=== PATIENT | female | born 1945 | race Caucasian/White ===

== ENCOUNTER 2017-12-02 05:45 | Inpatient (IN) ==
[~2017-12-02 05:45] MED LIST: ENOXAPARIN 40 MG/0.4 ML INJECTION SQ ONE
[2017-12-02 06:02] VITALS: BMI 31.9
[2017-12-02] MEDS: LR 1,000 ML IV SCH ×2 (06:40→09:05)
[2017-12-02] MEDS ORDERED: INDOCYANINE GREEN 25mg INJECTION ONE (06:56)
[2017-12-02] MEDS ORDERED: .WATER FOR INJECTION,STERILE 10 ML VIAL ONE (06:56)
[2017-12-02] MEDS ORDERED: ROCURONIUM 50 MG/5 ML INJECTION IVP ONE (07:30)
[2017-12-02] MEDS ORDERED: SUCCINYLCHOLINE 20mg/mL 10mL INJECTION ONE (07:30)
[2017-12-02] MEDS ORDERED: FentaNYL 250 MCG/5 ML INJECTION ONE (07:31)
[2017-12-02] MEDS ORDERED: PROPOFOL 500 MG/50 ML VIAL ONE (07:31)
[2017-12-02] MEDS ORDERED: DEXAMETHASONE 4 MG/ML INJECTION ONE (07:35)
--- NOTE | 2017-12-02 07:41 | Anesthesia Preoperative Report ---
Anesthesia Preoperative Record - Date and Time Date: 12/02/17 Preoperative Diagnosis: Rt Hemicolectomy C18.2 Proposed Procedure: Rt Hemicolectomy C18.2 NPO Since Date: 12/02/17 NPO Since Time: 00:00 Allergies/Adverse Reactions: Allergies Allergy/AdvReac Type Severity Reaction Status Date / Time Peanuts Allergy Severe itching Verified 12/02/17 06:20 throat NKDA Allergy Uncoded 12/02/17 06:20 - Vital Signs Vital Signs: Temperature 98.3 F 12/02/17 06:01 Pulse Rate 82 12/02/17 06:01 Respiratory Rate 12 12/02/17 06:01 Blood Pressure 184/84 H 12/02/17 06:01 Pulse Oximetry 94 12/02/17 06:01 Height and Weight: Height 1.73 m Weight 95.4 kg Body Mass Index 31.9 - Medications Inpatient Medications: Current Medications Lactated Ringer's (Lactated Ringers) 1,000 mls @ 50 mls/hr IV .Q20H CLOVIS Last Admin: 12/02/17 06:40 Dose: 50 mls/hr Ertapenem 1 g/ Sodium Chloride 100 mls @ 200 mls/hr IV PREOP ONE Stop: 12/02/17 14:13 Lidocaine HCl (Xylocaine-Mpf 1% Vial) 1 mg ID O ONE Stop: 12/02/17 13:44 Last Admin: 12/02/17 06:40 Dose: 1 mg Home Medications: Home Medications Medication Instructions Recorded Confirmed Type Celexa (citalopram) 40 mg tablet 0.5 tab PO DAILY 11/08/17 12/02/17 History Toprol XL (metoprolol succinate 50 mg PO DAILY 11/08/17 12/02/17 History ER) 50 mg tablet, 24 hr Zestril (lisinopril) 40 mg tablet 40 mg PO DAILY 11/08/17 12/02/17 History Zocor (simvastatin) 40 mg tablet 40 mg PO DAILY 11/08/17 12/02/17 History Protonix (Pantoprazole)40 mg 40 mg PO DAILY #30 tab 11/18/17 12/02/17 Rx tablet,delayed release Is Patient on Beta Linsey?: Yes Beta Linsey Last Dose Date/Time: 12/02/2017 - Medical History Respiratory: DENIES: Asthma, Bronchitis, Chronic Obstructive Pulmonary Disease (COPD), Dyspnea, Orthopnea, Pulmonary Embolism, Pneumonia, Upper Respiratory Infection, Pulmonary Edema, Sleep Apnea, Tuberculosis, Other Cardiovascular: Reports: Hypertension, High Cholesterol Gastrointestional: Reports: Gastroesophageal Reflux Disease (controlled with med ), Other (colon cancer) Neuro/Musculoskeletal: Reports: 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), Depression Other History: Reports: Anesthesia Reactions (NAUSEA), Blood Transfusions (no reaction), Cancer (BCC FACE, COLON), Other (exc fatty tumor on buttocks) - Surgical History GI Surgery/Treatments: Reports: Appendectomy, Colonoscopy, EGD Reproductive Surgery/Treatment: Reports: Dilation and Curettage, Hysterectomy, Hysteroscopy, Oophorectomy Anesthesia Reactions: None, Nausea and Vomiting Hx Family Anesthesia Reaction: No History of Motion Sickness: No - Social History Smoking Status: Never smoker Second Hand Exposure: No Substance Use Type: does not use Alcohol Intake Frequency: does not drink - Pertinent Findings Laboratory: CBC and BMP 12/02/17 06:07 EKG: Sinus Rhythm - Physical Exam Respiratory Exam: Present: lungs clear, bilateral breath sounds equal Cardiovascular Exam: Present: regular rate and rhythm - Airway Assessment Mallampati Score: II TMD: 3 Fingerbreadths Neck Extension: good Overall Assessment: no airway concerns - ASA ASA Score: 3 - Plan Anesthesia: General Inhalation Gases - Discussion Discussion: Discussed risks/options/alternatives of anesthesia and questions answered. Patient consents. Nursing pain assessment noted. Attestation Statement: Prior to the delivery of any anesthetic medication, I examined the patient, developed the plan, obtained the patient's consent and discussed the risk and benefits of the procedure with the patient/guardian. - Additional Information Seen by Anesthesia: Yes
[2017-12-02] MEDS ORDERED: ATROPINE 0.4 MG/ML INJECTION ONE (08:18)
[2017-12-02] MEDS ORDERED: MORPHINE SULFATE 10 MG/ML VIAL ONE (09:43)
[2017-12-02] MEDS ORDERED: METOCLOPRAMIDE 10mg/2ml INJECTION IVP PRN (09:52)
[2017-12-02] MEDS ORDERED: MORPHINE SULFATE 10 MG/ML VIAL IVP PRN (09:52)
--- NOTE | 2017-12-02 10:15 | General Surgery Procedure Note ---
Date of Procedure: 12/02/17 Surgeon: Desmond Postoperative Diagnosis: Colon adenocarcinoma Procedure: Right hemicolectomy Estimated Blood Loss: See Anesthesia Record.
[2017-12-02] MEDS: MORPHINE SULFATE 10 MG/ML VIAL IVP PRN ×2 (10:41→10:59)
[2017-12-02] MEDS ORDERED: PROMETHAZINE 25 MG INJECTION IVP PRN (11:31)
[2017-12-02] MEDS ORDERED: ONDANSETRON 4 MG/2 ML INJECTION IVP PRN (11:31)
[2017-12-02] MEDS: D5-1/2NS with KCL 20mEq 1,000 ML IV SCH ×2 (11:37→21:55)
[2017-12-02] MEDS: FAMOTIDINE PB 20 MG/50 ML BAG IV SCH ×2 (12:51→21:55)
[2017-12-02] MEDS ORDERED: LIDOCAINE 1% (10mg/ml) 2mL INJ PF SDV ID ONE (13:43)
[2017-12-02] MEDS ORDERED: ERTAPENEM 1 G in NS 100 ML IV ONE (13:44)
[2017-12-02] MEDS ORDERED: INFLUENZA VAC. INJ. ADMIN CHARGE INJ ONE (14:00)
[2017-12-02] MEDS ORDERED: INFLUENZA VAC High Dose 2017-18 (Fluzone HD*) (>=65yo) 0.5ml IM ONE (15:00)
--- NOTE | 2017-12-02 15:40 | Operative Note ---
DATE OF OPERATION 12/02/2017 PREOPERATIVE DIAGNOSES 1. Invasive colonic adenocarcinoma at mid ascending colon. 2. Colon polyp located just distal to the invasive colonic adenocarcinoma. POSTOPERATIVE DIAGNOSES 1. Invasive adenocarcinoma at mid ascending colon. 2. Colon polyp located just distal to the invasive adenocarcinoma. 3. Intraabdominal adhesions. 4. Nodule at surface of liver. 5. Hepatic cyst. OPERATION Laparotomy, lysis of intraabdominal adhesions, open right hemicolectomy and excision of nodule at surface of liver. SURGEON Bart Logan MD SENSITOMETRIST Mj Quinonez MD ANESTHESIA General ASA CLASS 3 FINDINGS This patient did have a mass at the mid ascending colon. There was no gross evidence of extension of the mass through the wall of the colon into any surrounding structures. Some of the lymph nodes in the ascending colon mesentery appeared to be enlarged. The patient did have some intraabdominal adhesions. There were some adhesions from the surface of the liver to the anterior abdominal wall parietal peritoneum. There were some adhesions around the gallbladder and hepatic flexure of the colon area. The patient did have her uterus and ovaries and fallopian tubes removed at previous operations. There were some adhesions involving the small intestine associated with these previous operations. The patient did have an old midline vertically oriented lower abdominal incision scar from a laparotomy with salpingo-oophorectomy operation. The patient also had old robotic laparoscopic hysterectomy incision scars. The patient did have one cyst at the liver. This was at the margin of the liver at the lateral segment of the left lobe of the liver. This was a typical benign-appearing hepatic cyst. The patient did have a small white nodule of tissue at the anterior surface of the lateral segment of the left lobe of the liver. This was located just superior to where the hepatic cyst was located. This small white nodule of tissue at the surface of the liver was excised at the time of the operation today. There were no other similar nodules anywhere else. There were no visceral or peritoneal tumor implants anywhere throughout the peritoneal cavity. The only area that was thought to be suspicious for metastatic disease was the small white nodule at the anterior surface of the left lobe of the liver. The gallbladder did not appear to contain any gallstones. DESCRIPTION OF OPERATION The patient was placed in supine position on the operating table. General anesthesia was satisfactorily induced. The abdomen was prepped and draped in routine sterile fashion. A midline vertically oriented abdominal incision was made and extended through the abdominal wall. The peritoneal cavity was entered. The Desmond wound protector was placed at the incision at this time. The Codman retractor was assembled at this time and used to provide exposure. The abdomen was explored with findings as described above. Intraabdominal adhesions at the right upper quadrant of the peritoneal cavity were divided at this time. The greater omentum was from the right half of the transverse colon. The hepatic flexure of the colon was mobilized. Some adhesions between the hepatic flexure of the colon and the gallbladder were divided. The peritoneum along the right lateral gutter was incised. The ascending colon was mobilized medially. The duodenum was carefully identified and preserved from injury at this time. The mesentery of the transverse colon was carefully examined. The position of the middle colic blood vessels was identified. A distal resection margin was selected at the transverse colon just to the right side of the middle colic blood vessels so that there would be a good blood supply up to the end of the transverse colon which was left in the patient to be used for the anastomosis. The transverse colon was divided at the distal resection margin with the Eth[employer] brand TLC 75 linear cutter stapler. This did allow a good blood supply within the remaining transverse colon mesentery leading up to the remaining transverse colon. A proximal resection margin was selected at the terminal ileum. Some of the adhesions around the terminal ileum were divided at this time to mobilize up the terminal ileum. The terminal ileum was divided at the proximal resection margin with the Ethicon brand TLC 75 linear cutter stapler. Mesentery beneath the segment of the terminal ileum to be resected was divided. This was done by doubly clamping the mesentery with right angle clamps, dividing the mesentery between clamps and ligating the pedicles of mesentery with 0 Vicryl ligatures. The ileocolic artery and vein were divided at the level of the root of the mesentery. The ileocolic artery and vein were from one another and the artery was doubly clamped with right angle clamps and the vein was separately doubly clamped with right angle clamps. The artery and vein were divided between the clamps. The ileocolic artery was ligated with 0 Vicryl ligatures. The ileocolic vein was ligated with 0 Vicryl ligatures. The mesentery beneath the ascending colon and the hepatic flexure of the colon and the proximal transverse colon was divided at the level of the root of the mesentery. This was done by doubly clamping the mesentery between right angle clamps, dividing the mesentery between right angle clamps and ligating the pedicles of the mesentery with 0 Vicryl ligatures. The specimen of terminal ileum, cecum, ascending colon and proximal transverse colon along with the underlying mesentery was then handed off as a specimen for study by the pathologist. Irrigation was performed at the peritoneal cavity. Hemostasis appeared to be satisfactory everywhere. The stapled closed end of ileum was brought up into a position adjacent to the stapled closed end of transverse colon. A functional end-to-end anastomosis was then created between the stapled closed end of the ileum and stapled closed end of the transverse colon using the [employer] TLC 75 linear cutter stapler and the EthiEpocrates TX 60 -B stapler. The internal staple lines were inspected as this was done and they looked good. The external staple lines were inspected and they looked good. There did appear to be a good blood supply to the anastomosis. There was no tension on the anastomosis. The anastomosis did appear to have a satisfactory size. Two stitches of 3-0 Vicryl suture were placed at the crotch of the anastomosis. These were 3-0 Vicryl simple interrupted seromuscular stitches. The opening in the mesentery beneath the anastomosis was then closed with a continuous simple [id number] stitch using 3-0 Vicryl suture. Hemostasis remained satisfactory throughout the peritoneal cavity. The greater omentum was brought down over the anastomosis and beneath the incision. Attention was directed to the small white nodule at the surface of the lateral segment of the left lobe of the liver. This nodule was excised with the monopolar electrosurgery device and submitted as a specimen for study by the pathologist. The site where the nodule was removed from the surface of the liver was coagulated with the monopolar electrosurgery device to achieve hemostasis. Satisfactory hemostasis was present at this area. The Codman retractor was removed. The Desmond wound protector was removed. The surgeon, first coat operator and scrub nurse all changed gowns and gloves at this time. New sterile drapes were placed at the incision. New light handles were used. A reserved clean instrument tray was then used for closing the wound. The abdominal incision was closed. The fascial layer of the incision was closed and the linea alba was reapproximated with a continuous simple [id number] stitch using #1 PDS suture. The skin margins at the incision were reapproximated with skin eric. Sterile dressings were applied. Sponge, needle and instrument counts were all correct. The patient did appear to tolerate the operation well. The patient was transferred from the operating room to the recovery room in satisfactory condition. LEISA
[2017-12-02] MEDS: KETOROLAC 15 MG/ML INJECTION IVP PRN (16:44)
[2017-12-02] MEDS: MORPHINE SULFATE 10 MG SYRINGE IV PRN (17:51)
[2017-12-03] MEDS: KETOROLAC 15 MG/ML INJECTION IVP PRN ×3 (00:37→15:59)
[2017-12-03] MEDS: MORPHINE SULFATE 10 MG SYRINGE IV PRN ×2 (06:18→13:30)
[2017-12-03] MEDS: D5-1/2NS with KCL 20mEq 1,000 ML IV SCH ×2 (08:27→19:46)
[2017-12-03] MEDS: FAMOTIDINE PB 20 MG/50 ML BAG IV SCH ×2 (08:28→21:19)
[2017-12-03] MEDS: ENOXAPARIN 40 MG/0.4 ML INJECTION SQ SCH (08:28)
--- NOTE | 2017-12-03 10:57 | Progress Note ---
DATE 12/03/2017 POSTOP DAY #1 HISTORY OF PRESENT ILLNESS The patient is doing well. She has been stable since her operation. She has good pain control. She has not been out of bed yet. PHYSICAL EXAMINATION VITAL SIGNS: Temperature is 98.3 degrees Fahrenheit oral. Pulse is 79. Respiratory rate is 16. Blood pressure is 146/64. Oxygen saturation is 95% on oxygen at 1 liter per minute by nasal cannula. ABDOMEN: The abdominal incision looks good. The abdomen is nondistended. INTAKE AND OUTPUT The patient has had a good urine output since the operation.. LABORATORY DATA Hemoglobin was 9.3 and hematocrit was 31.6 preoperatively at 0607 hours on 12/02. Hemoglobin was 8.2 and hematocrit was 28.8 this morning. White blood cell count is 6900. Serum sodium was 142. Serum potassium is 4.4. Serum creatinine is 0.7. IMPRESSION 1. Doing well following laparotomy, lysis of intraabdominal adhesions, open right hemicolectomy and excision of nodule at surface of the liver on 2017. 2. Anemia due to chronic gastrointestinal tract blood loss from invasive adenocarcinoma at the mid ascending colon. PLAN 1. Get patient out of bed and up in chair and ambulate her more today. 2. Discontinue Mc catheter. 3. Continue Lovenox and sequential compression devices for deep venous thrombosis prophylaxis. 4. Continue intravenous Pepcid for GI prophylaxis. MTDD
[2017-12-04] MEDS: D5-1/2NS with KCL 20mEq 1,000 ML IV SCH ×2 (06:43→10:46)
[2017-12-04] MEDS: ENOXAPARIN 40 MG/0.4 ML INJECTION SQ SCH (08:26)
[2017-12-04] MEDS: FAMOTIDINE PB 20 MG/50 ML BAG IV SCH ×3 (08:30→20:10)
[2017-12-04] MEDS: LISINOPRIL 40 MG TABLET PO SCH (10:51)
[2017-12-04] MEDS: SIMVASTATIN 40 MG TABLET PO SCH (10:51)
[2017-12-04] MEDS ORDERED: SIMVASTATIN 40 MG TABLET PO SCH (21:00)
[2017-12-05] MEDS: D5-1/2NS with KCL 20mEq 1,000 ML IV SCH ×2 (00:45→05:57)
[2017-12-05] MEDS: LISINOPRIL 40 MG TABLET PO SCH ×2 (06:38→11:09)
--- NOTE | 2017-12-05 07:38 | Progress Note ---
DATE 12/04/2017 POSTOP DAY #2 HISTORY OF PRESENT ILLNESS The patient is doing well overall. She has good pain control. She has been up ambulating. She has not started to pass any flatus yet. The patient has been urinating frequently. We did just check the residual amount of urine in the bladder with a bladder scanner. The patient had 300 ml residual urine in the bladder by bladder scanner immediately after voiding 200 ml. This indicates that the urinary frequency is due to some postoperative urinary retention. The patient has been noted to have some hypertension this morning. She normally takes antihypertensive medication at home. PHYSICAL EXAMINATION VITAL SIGNS: Temperature is 97 degrees Fahrenheit oral. Pulse is 77. Respiratory rate is 16. The patient did have a blood pressure of 190/90 at 0320 hours. The patient had a blood pressure of 188/85 at 0708 hours. Oxygen saturation is 99% on room air. ABDOMEN: The abdominal incision looks good. The abdomen is nondistended. IMPRESSION 1. Doing well following laparotomy, lysis of intraabdominal adhesions, open right hemicolectomy and excision of nodule at surface of liver on 12/02/2017. 2. Anemia due to chronic gastrointestinal tract blood loss from invasive adenocarcinoma at the mid ascending colon. 3. Postoperative urinary retention. 4. Hypertension. PLAN 1. Straight catheterization of the patient p.r.n. when she has large residual urine amounts by bladder scanning after voiding to see if this will help her regain bladder tone. If this does not work, the patient may need to have a Mc catheter reinserted. 2. Resume antihypertensive medication which the patient was taking preoperatively at this time to treat the hypertension. 3. Continue ambulation of the patient. 4. Continue Lovenox and sequential compression devices for deep venous thrombosis prophylaxis. 5. Continue intravenous Pepcid for GI prophylaxis. MTDD
[2017-12-05] MEDS: FAMOTIDINE PB 20 MG/50 ML BAG IV SCH (11:09)
[2017-12-05] MEDS: ENOXAPARIN 40 MG/0.4 ML INJECTION SQ SCH (11:14)
[2017-12-05] MEDS: SIMVASTATIN 40 MG TABLET PO SCH (11:14)
[2017-12-05] MEDS: KETOROLAC 15 MG/ML INJECTION IVP PRN (15:23)
[2017-12-05] MEDS ORDERED: ACETAMINOPHEN 500 MG TABLET PO PRN (18:02)
[2017-12-05] MEDS ORDERED: Oxycodone *IR* 5 MG TABLET PO PRN (18:02)
--- NOTE | 2017-12-05 18:41 | Progress Note ---
DATE 12/05/2017 POSTOP DAY #3 HISTORY OF PRESENT ILLNESS The patient is doing well overall. She has good pain control. She has been ambulating in the halls. She is urinating less frequently. The patient was started on a clear liquid diet with toast and crackers this morning. The patient did begin passing some flatus today. PHYSICAL EXAMINATION VITAL SIGNS: Temperature is 98.1 degrees Fahrenheit oral. Pulse is 65. Respiratory rate is 16. Blood pressure is 167/80. Oxygen saturation is 95% on room air. ABDOMEN: The abdominal incision looks good. The abdomen is nondistended. IMPRESSION 1. Doing well following laparotomy, lysis of intraabdominal adhesions, open right hemicolectomy and excision of nodule at surface of liver on 12/02/2017. 2. Anemia due to chronic gastrointestinal tract blood loss from invasive adenocarcinoma at the mid ascending colon. 3. Postoperative urinary retention which is improved. 4. Hypertension which is improved. PLAN 1. Continue clear liquid diet with toast and crackers at this time. 2. Continue ambulation of the patient. 3. Continue antihypertensive medication which the patient was taking preoperatively. 4. Continue Lovenox and sequential compression devices for deep venous thrombosis prophylaxis. 5. Stop intravenous Pepcid today and have patient start taking Protonix 40 mg p.o. daily for GI prophylaxis. 6. Start oral analgesics today to begin transition from intravenous analgesics to oral analgesics. MTDD
[2017-12-06] MEDS: D5-1/2NS with KCL 20mEq 1,000 ML IV SCH ×2 (02:20→18:22)
[2017-12-06] MEDS: PANTOPRAZOLE 40 MG TABLET PO SCH (05:47)
[2017-12-06] MEDS ORDERED: IBUPROFEN 200 MG TABLET PO PRN (08:56)
[2017-12-06] MEDS: ENOXAPARIN 40 MG/0.4 ML INJECTION SQ SCH (08:59)
[2017-12-06] MEDS: LISINOPRIL 40 MG TABLET PO SCH (08:59)
[2017-12-06] MEDS: SIMVASTATIN 40 MG TABLET PO SCH (08:59)
--- NOTE | 2017-12-06 16:09 | Progress Note ---
DATE 12/06/2017 POSTOP DAY #4 HISTORY OF PRESENT ILLNESS The patient is doing well overall. She is ambulating. She has good pain control with oral analgesics. She is tolerating a clear liquid diet with toast and crackers. She has been passing flatus. She has not had a bowel movement yet since the operation. PHYSICAL EXAMINATION VITAL SIGNS: Temperature is 97.1 degrees Fahrenheit oral. Pulse is 69. Respiratory rate is 16. Blood pressure is 168/88. Oxygen saturation is 95% on room air. ABDOMEN: The abdomen is nondistended. The abdominal incision looks good. IMPRESSION 1. Doing well following laparotomy, lysis of intraabdominal adhesions, open right hemicolectomy and excision of nodule at surface of liver on 12/02/2017. 2. Anemia due to chronic gastrointestinal tract blood loss from invasive adenocarcinoma at the mid ascending colon. PLAN 1. Advance diet to a full liquid diet with toast and crackers. 2. Continue ambulation. 3. Continue antihypertensive medication which the patient was taking preoperatively. 4. Continue Lovenox and sequential compression devices for deep venous thrombosis prophylaxis. [facility]
[2017-12-06 20:02] VITALS: RESP 16
[2017-12-07] MEDS: PANTOPRAZOLE 40 MG TABLET PO SCH (06:21)
[2017-12-07] MEDS: LISINOPRIL 40 MG TABLET PO SCH (09:02)
[2017-12-07] MEDS: SIMVASTATIN 40 MG TABLET PO SCH (09:02)
[2017-12-07] MEDS: ENOXAPARIN 40 MG/0.4 ML INJECTION SQ SCH (09:02)
[2017-12-07] MEDS ORDERED: CITALOPRAM 20 MG TABLET PO SCH (09:15)
[2017-12-07] MEDS: D5-1/2NS with KCL 20mEq 1,000 ML IV SCH (10:45)
--- NOTE | 2017-12-07 16:23 | Progress Note ---
DATE 12/07/2017 POSTOP DAY #5 HISTORY OF PRESENT ILLNESS The patient continues to do well. She is ambulating well. She tolerated the full liquid diet with toast and crackers for dinner yesterday evening and for breakfast this morning. Diet was advanced to a regular diet this morning. The patient tolerated a regular diet for lunch today. The patient continues to pass flatus. She did have a bowel movement today. The patient is not using analgesics. She is doing well overall. PHYSICAL EXAMINATION VITAL SIGNS: Temperature is 97.9 degrees Fahrenheit oral. Pulse is 64. Respiratory rate is 16. Blood pressure is 153/90. Oxygen saturation is 98% on room air. ABDOMEN: The abdominal incision looks good. No sign of any wound-healing problems at the incision. IMPRESSION Doing well following laparotomy, lysis of intraabdominal adhesions, open right hemicolectomy and excision of nodule at surface of liver on 12/02/2017. PLAN Dismiss patient from [facility] today. DISCHARGE MEDICATIONS Resume medications which the patient was taking prior to admission to the hospital. LEISA
[2017-12-07 16:34] VITALS: BP 152/72; PULSE 69; TEMP 98.4; O2SAT 96
--- NOTE | 2017-12-09 12:07 | Discharge Summary ---
DISCHARGE DIAGNOSES 1. Invasive adenocarcinoma at mid ascending colon. 2. 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 3. Intra-abdominal adhesions. 4. Benign collagenized solid nodule at surface of liver. 5. Hepatic cyst. 6. Anemia due to chronic gastrointestinal tract blood loss from invasive colonic adenocarcinoma. 7. Postoperative urinary retention. 8. Hypertension. 9. Internal and external hemorrhoids. 10. Small hiatal hernia. 11. Gastroesophageal reflux disease. 12. Hyperlipidemia. 13. Depression. OPERATION Laparotomy, lysis of intraabdominal adhesions, open right hemicolectomy and excision of nodule at surface of liver on 12/02/2017. HOSPITAL COURSE This patient was admitted to [facility] by Dr. Logan on 12/02/2017. History and physical examination findings at the time of admission to the hospital can be found in the dictated admission history and physical examination report in the chart. The main admission diagnosis was invasive colonic adenocarcinoma at mid ascending colon. The patient was also known at the time of admission to the hospital to have a colon polyp located just distal to the invasive colonic adenocarcinoma. The patient was known at the time of admission to the hospital to have anemia due to chronic gastrointestinal tract blood loss from the invasive colonic adenocarcinoma. The patient was known at the time of admission to the hospital to have chronic medical problems including internal and external hemorrhoids, small hiatal hernia, gastroesophageal reflux disease, hypertension, hyperlipidemia and depression. The patient did have a CBC performed preoperatively on 12/02/2017. Hemoglobin was 9.3 and hematocrit was 31.6 at this time. The patient was given Lovenox preoperatively. The patient was given Invanz 1 g intravenously preoperatively. The patient did undergo laparotomy, lysis of intraabdominal adhesions, open right hemicolectomy and excision of a solid nodule at the surface of the liver on 12/02/[address] Logan at [facility]. Details of operative findings can be found in the dictated operative report in the chart. There were no complications during the operation. The patient tolerated the operation well. The patient did continue to receive Lovenox and sequential compression devices for deep venous thrombosis prophylaxis postoperatively. On the first postoperative day, the patient was doing well. Vital signs were stable. The patient had a good urine output. Hemoglobin was 8.2. Hematocrit was 28.8. White blood cell count was 6900. The Mc catheter was discontinued on the first postoperative day. Plans were made to get the patient up out of bed and ambulate her more. Lovenox and sequential compression devices were continued for deep venous thrombosis prophylaxis. Intravenous Pepcid was being used for GI prophylaxis. On the second postoperative day, the patient was doing well. She had good pain control. She had been up ambulating. The patient was urinating frequently. A residual urine amount was checked with the bladder scanner immediately after the patient voided. The patient did void 200 mL . The patient then had 300 mL of residual urine in the bladder measured by the bladder scanner. It was thought that the patient was having some urinary frequency due to postoperative urinary retention. The patient did also have some hypertension on the second postoperative day. The patient had a blood pressure of 190/90 at 0320 hours. The patient had a blood pressure of 188/85 at 0708 hours. The preoperative hypertensive medication which the patient had been taking was resumed on the second postoperative day. Ambulation of the patient was continued. Plans were made to catheterize the urinary bladder of the patient with straight catheterization p.r.n. if she continued to experience more postoperative urinary retention. Lovenox and sequential compression devices were continued for deep venous thrombosis prophylaxis. Intravenous Pepcid was continued for GI prophylaxis. On the third postoperative day, the patient had good pain control. She was up ambulating in the halls. She was urinating less frequently. The patient was started on a clear liquid diet with toast and crackers on the morning of the third postoperative day. She did tolerate this well. The patient did begin passing some flatus on the third postoperative day. The postoperative urinary retention appeared to be improved at this time. The hypertension also appeared to be improved. Antihypertensive medication was continued. Lovenox and sequential compression devices were continued for deep venous thrombosis prophylaxis. The intravenous Pepcid was stopped at this time and the patient was started on treatment with Protonix 40 mg p.o. daily for treatment of her gastroesophageal reflux disease and for GI prophylaxis. Oral analgesics were also started on the third postoperative day to begin to transition the patient from intravenous analgesics to oral analgesics. On the fourth postoperative day, the patient had good pain control with oral analgesics. She was tolerating a clear liquid diet with toast and crackers. She was passing flatus. Diet was advanced to a full liquid diet with toast and crackers. The ambulation was continued. Antihypertensive medication was continued. Lovenox and sequential compression devices were continued for deep venous thrombosis prophylaxis. On the fifth postoperative day, the patient did continue to do well. She was tolerating a full liquid diet with toast and crackers. Diet was advanced to a regular diet on the fifth postoperative day. The patient did tolerate the regular diet well. The patient continued to pass flatus. She did have a bowel movement on the fifth postoperative day. The patient was not using any analgesics at this time. The abdominal incision looked good. The patient was doing well overall. The patient was discharged from [facility] in stable condition on the fifth postoperative day. A pathology report was later returned on the specimens submitted at the time of the operation performed on 12/02/2017. The pathology report showed an invasive adenocarcinoma at the mid ascending colon. The tumor was 3.5 cm long with a 6.5 cm circumference. Resection margins were free of tumor involvement. A total of 21 pericolic lymph nodes were negative for metastatic adenocarcinoma. The patient did have a villous adenoma polyp with intramucosal carcinoma located 5 cm from the distal margin of the invasive adenocarcinoma. This was the colon polyp known to be present at the time of admission to the hospital. This was a 0.8 cm villous adenoma polyp. The solid nodule excised from the surface of the liver at the time of the operation was found to be benign liver tissue with a collagenized nodule. DISCHARGE MEDICATIONS 1. Celexa 40 mg one-half tablet p.o. daily. 2. Toprol XL 50 mg one p.o. daily. 3. Zestril 40 mg one p.o. daily. 4. Zocor 40 mg one p.o. daily. 5. Protonix 40 mg one p.o. daily. DISCHARGE DISPOSITION Followup office visit with Dr. Logan on the week following dismissal from the hospital. LEISA
== END 2017-12-07 17:04 | disposition home or self-care (01) | DRG 331 ==
LOC: NMC.PERIOP 05:45 → SRG 11:26
PROVIDERS: ADMIT Surgery; ATTEND Surgery